=== PATIENT | female | born 1955 | race Caucasian/White ===

== ENCOUNTER 2022-04-16 23:20 | Emergency (ER) | payer MEDICARE, OTHER ==
[2022-04-16] MEDS ORDERED: valACYclovir 1,000 MG Tab PO STA (23:55)
[2022-04-17 00:26] VITALS: BP 148/82; PULSE 73
== END 2022-04-17 00:15 | disposition home or self-care (01) ==
LOC: JD.ED 23:20
DX: B02.9 Zoster without complications (principal); E78.00 Pure hypercholesterolemia, unspecified; I10 Essential (primary) hypertension; K21.9 Gastro-esophageal reflux disease without esophagitis; M19.90 Unspecified osteoarthritis, unspecified site; E66.9 Obesity, unspecified; Z68.32 Body mass index [BMI] 32.0-32.9, adult; Z79.82 Long term (current) use of aspirin; Z79.899 Other long term (current) drug therapy
CPT/HCPCS: 99282; A9270; 99283

== ENCOUNTER 2022-04-30 08:08 | Day surgery (SDC) | payer MEDICARE, OTHER ==
[2022-04-30] MEDS ORDERED: Sodium Chloride 0.9% 10 ML Syringe FLUSH PRN (08:11)
[2022-04-30] MEDS ORDERED: Lidocaine 1%/Sod Bicarbonate in NS 8.4% 1 ML Syringe IDERM PRN (08:11)
[2022-04-30] MEDS ORDERED: Lactated Ringers 1,000 ML IV SCH (08:15)
[2022-04-30] MEDS ORDERED: Propofol 200 MG/20 ML SDV ONE ×2 (08:55→10:25)
[2022-04-30] MEDS ORDERED: fentaNYL 100 MCG/2 ML SDV ONE ×2 (08:55→10:55)
[2022-04-30] MEDS ORDERED: Lidocaine 1% 5 ML VIAL ONE (08:56)
[2022-04-30] MEDS ORDERED: Midazolam 1 MG/ML 2 ML SDV ONE (08:56)
[2022-04-30] MEDS ORDERED: ceFAZolin 2 GM Vial ONE (08:58)
[2022-04-30] MEDS ORDERED: Sodium Chloride 0.9% 10 ML Syringe FLUSH SCH (09:00)
[2022-04-30] MEDS ORDERED: fentaNYL 100 MCG/2 ML SDV IVPUSH PRN (09:34)
[2022-04-30] MEDS ORDERED: Ondansetron 4 MG/2 ML SDV IVPUSH PRN (09:34)
[2022-04-30] MEDS ORDERED: HYDROmorphone 0.5 MG/0.5 ML Syringe IVPUSH PRN (09:34)
[2022-04-30] MEDS ORDERED: Ondansetron 4 MG/2 ML SDV ONE (09:38)
[2022-04-30] MEDS: Vancomycin 1 GM SDV ONE ×2 (10:11→10:34)
[2022-04-30] MEDS: Tranexamic Acid 1,000 MG/10 ML Vial ONE ×2 (10:11→10:34)
[2022-04-30] MEDS: Morphine 8 MG, EPINEPHrine 0.3 MG, Cefuroxime 750 MG, Ketorolac 30 MG, Sodium Chloride ... PRN ×10 (10:12→10:33)
[2022-04-30] MEDS ORDERED: Lactated Ringers 1,000 ML ONE (10:26)
[2022-04-30] MEDS ORDERED: Ketorolac 30 MG/ML SDV ONE (10:54)
[2022-04-30 14:24] VITALS: BP 164/56; PULSE 63
== END 2022-04-30 15:11 | disposition home or self-care (01) ==
LOC: JD.SDS 08:08
PROVIDERS: ATTEND Orthopaedic Surgery
DX: M16.11 Unilateral primary osteoarthritis, right hip (principal); I10 Essential (primary) hypertension; K21.9 Gastro-esophageal reflux disease without esophagitis; E78.00 Pure hypercholesterolemia, unspecified; E66.9 Obesity, unspecified; Z86.73 Personal history of transient ischemic attack (TIA), and cerebral infarction without residual deficits; Z79.899 Other long term (current) drug therapy; Z68.34 Body mass index [BMI] 34.0-34.9, adult
CPT/HCPCS: 0055T; 27130; 36415; 73501; 86850; 86900; 86901; 97110; 97116; 97161; C1713; C1776; J0171; J0690; J0697; J1885; J2250; J2270; J2405; J2704; J3010; J3370; J7120; 01214; J3490